=== PATIENT | female | born 1955 | race Caucasian/White ===

== ENCOUNTER 2018-03-02 19:07 | Observation (INO) | payer MEDICARE, BC ==
[2018-03-02] MEDS ORDERED: ASPIRIN 81 MG PO STA (19:27)
--- NOTE | 2018-03-02 19:30 | ED ---
Chest Pain HPI - General Chief Complaint: Chest Pain Stated Complaint: chest pain Time Seen by Provider: 03/02/18 19:19 Source: patient, RN notes reviewed, old records reviewed Mode of arrival: wheelchair Limitations: no limitations - History of Present Illness Initial Comments: This is a 62-year-old female history of heart disease and stent placement in the past with the last one about 6 months ago who states she's been having intermittent chest pain all day since this morning. She does relate she recently went camping and did do a lot of bending stretching and lifting things she states that pain is midsternal pressure-like it averages 5/10 in severity currently it's 0 she states it feels similar to what she had before her previous stents. She had no fevers chills nausea vomiting sweats or other symptoms at this time. She did not take her aspirin yet today. MD Complaint: chest pain - Related Data Home Medications Medication Instructions Recorded Confirmed Aspirin EC [Ecotrin] 81 mg PO HS 09/15/15 03/02/18 Omeprazole [PriLOSEC] 20 mg PO AC-BRKFST 09/15/15 03/02/18 Carvedilol [Coreg] 12.5 mg PO DAILY 03/02/18 03/02/18 Citalopram Hydrobromide [CeleXA] 20 mg PO HS 03/02/18 03/02/18 Clopidogrel [Plavix] 75 mg PO DAILY 03/02/18 03/02/18 Evolocumab [Repatha Sureclick] 140 mg SQ Q14D 03/02/18 03/02/18 Ezetimibe [Zetia] 10 mg PO HS 03/02/18 03/02/18 Ibuprofen [Motrin] 800 mg PO TID 03/02/18 03/02/18 Pramipexole Di-HCl [Mirapex] 0.25 mg PO HS 03/02/18 03/02/18 amLODIPine [Norvasc] 5 mg PO DAILY 03/02/18 03/02/18 Allergies Allergy/AdvReac Type Severity Reaction Status Date / Time diphenhydramine Allergy Unknown Verified 03/02/18 20:29 [From Benadryl] isosorbide [From Imdur] Allergy Unknown Verified 03/02/18 20:29 hydromorphone [From Dilaudid] AdvReac Nausea & Verified 03/02/18 20:29 Vomiting Review of Systems ROS Statement: Those systems with pertinent positive or pertinent negative responses have been documented in the HPI. ROS Other: All systems not noted in ROS Statement are negative. EKG Findings - EKG Results: EKG: interpreted by HEBER, sinus rhythm (Normal sinus rhythm a 67 appear of 01 48 QRS duration 82 QT since QTC 404/[address] configuration and T-wave configuration this is compared to an EKG dated 09/15/15) Past Medical History Past Medical History: Coronary Artery Disease (CAD), Chest Pain / Angina, Dementia, Hypertension Additional Past Medical History / Comment(s): valve prolapse, wears oxygen at night History of Any Multi-Drug Resistant Organisms: None Reported Past Surgical History: Heart Catheterization With Stent Past Psychological History: No Psychological Hx Reported Smoking Status: Never smoker Past Alcohol Use History: None Reported Past Drug Use History: None Reported General Exam - General Exam Comments Initial Comments: This is a well-developed well-nourished awake alert oriented x 3 female Limitations: no limitations General appearance: alert, in no apparent distress Head exam: Present: atraumatic, normocephalic, normal inspection Eye exam: Present: normal appearance, PERRL, EOMI. Absent: scleral icterus, conjunctival injection, periorbital swelling ENT exam: Present: normal exam, mucous membranes moist Neck exam: Present: normal inspection. Absent: tenderness, meningismus, lymphadenopathy Respiratory exam: Present: normal lung sounds bilaterally. Absent: respiratory distress, wheezes, rales, rhonchi, stridor, chest wall tenderness Cardiovascular Exam: Present: regular rate, normal rhythm, normal heart sounds. Absent: systolic murmur, diastolic murmur, rubs, gallop, clicks GI/Abdominal exam: Present: soft, normal bowel sounds. Absent: distended, tenderness, guarding, rebound, rigid Extremities exam: Present: normal inspection, full ROM, normal capillary refill. Absent: tenderness, pedal edema, joint swelling, calf tenderness Back exam: Present: normal inspection Neurological exam: Present: alert, oriented X3, CN II-XII intact Psychiatric exam: Present: normal affect, normal mood Skin exam: Present: warm, dry, intact, normal color. Absent: rash Course Vital Signs 03/02/18 03/02/18 03/02/18 19:13 19:27 20:10 Temperature 97.7 F Pulse Rate 70 63 Respiratory 18 18 18 Rate Blood Pressure 161/77 152/64 O2 Sat by Pulse 96 98 Oximetry 03/02/18 21:31 Temperature Pulse Rate 70 Respiratory 18 Rate Blood Pressure 160/73 O2 Sat by Pulse 100 Oximetry - Reevaluation(s) Reevaluation #1: 03/02/18 22:34 Reevaluation of the patient reveals no further chest pain. Chest Pain MDM - MDM Review the imaging shows no acute findings. I did discuss findings with the patient she's had no further pain however the symptoms are consistent with unstable angina. Patient will be admitted I did discuss the case with Pete Alvarado covering for Dr. Baker. Critical Care Time Critical Care Time: Yes Critical Care Time: 31 minutes of critical care time which includes initial presentation with history physical labs x-rays several reevaluation the patient discussed with patient family regarding the findings discussion with the admitting service admission orders and documentation of the above Disposition Clinical Impression: Chest pain, Unstable angina pectoris Disposition: ADMITTED IP TO THIS [facility] Condition: Stable Referrals: Ruel Engle MD [Primary Care Provider] - 1-2 days
[2018-03-02 19:40] LABS: Basophils # (A) 0.1 k/uL (0-0.2); Basophils % (A) 1 %; Eosinophils # (A) 0.2 k/uL (0-0.7); Eosinophils % (A) 4 %; HCT 41.3 % (34.0-46.0); HGB 13.7 gm/dL (11.4-16.0); Lymphocytes % (A) 31 %; MCH 29.1 pg (25.0-35.0); MCHC 33.2 g/dL (31.0-37.0); MCV 87.7 fL (80.0-100.0); Mean Platelet Volume 7.2; Monocytes # (A) 0.4 k/uL (0-1.0); Monocytes % (A) 6 %; Neutrophils # (A) 3.8 k/uL (1.3-7.7); Neutrophils % (A) 58 %; Platelet Count 243 k/uL (150-450); WBC 6.6 k/uL (3.8-10.6)
--- NOTE | 2018-03-02 19:45 | XR ---
EXAMINATION TYPE: XR chest 2V DATE OF EXAM: 03/02/2018 COMPARISON: 09/15/2015 INDICATION: Chest pain TECHNIQUE: Frontal and lateral views of the chest are obtained. FINDINGS: The heart size is normal. Stents are faintly visualized. The pulmonary vasculature is normal. The lungs are clear. IMPRESSION: 1. No acute pulmonary process.
[2018-03-02 20:04] LABS: Albumin 3.9 g/dL (3.5-5.0); Calcium 9.7 mg/dL (8.4-10.2); Magnesium 1.9 mg/dL (1.6-2.3); Potassium 3.7 mmol/L (3.5-5.1); Total Bilirubin 0.4 mg/dL (0.2-1.3); Total Protein 6.6 g/dL (6.3-8.2)
[2018-03-02 20:07] LABS: Creatine Kinase 45 U/L (30-135)
[2018-03-02 20:19] LABS: Creatine Kinase MB 0.2 ng/mL (0.0-2.4); Troponin I <0.012 ng/mL (0.000-0.034)
[2018-03-02] MEDS ORDERED: NITROGLYCERIN SL TABS 0.4 MG TAB SUBLINGUAL PRN (22:36)
[2018-03-02] MEDS ORDERED: SODIUM CHLORIDE 0.9% 1,000 ML IV SCH (22:45)
[2018-03-03 00:29] VITALS: BMI 34.9
[2018-03-03 05:45] LABS: Creatine Kinase 175 U/L (30-135); Creatine Kinase MB 1.3 ng/mL (0.0-2.4); Troponin I <0.012 ng/mL (0.000-0.034)
[2018-03-03] MEDS ORDERED: HEPARIN SODIUM,PORCINE 5,000 UNIT/ML 1 ML VIAL IV PRN (07:18)
[2018-03-03] MEDS ORDERED: HEPARIN SODIUM,PORCINE 5,000 UNIT/ML 1 ML VIAL IV ONE (07:18)
[2018-03-03] MEDS ORDERED: PANTOPRAZOLE 40 MG TABLET PO SCH (07:30)
[2018-03-03] MEDS ORDERED: HEPARIN SODIUM,PORCINE/D5W PMX 25,000 UNIT in DEXTROSE/WATER 1 500ML.BAG IV SCH (07:30)
[2018-03-03] MEDS ORDERED: SODIUM CHLORIDE 0.9% 1,000 ML in EMPTY BAG 1 BAG IV ONE (07:38)
[2018-03-03] MEDS ORDERED: ALPRAZolam 0.25 MG TAB PO PRN (07:38)
[2018-03-03] MEDS ORDERED: ATORVASTATIN 80 MG TAB PO STA (07:38)
[2018-03-03] MEDS ORDERED: NITROGLYCERIN SL TABS 0.4 MG TAB SUBLINGUAL PRN (07:38)
[2018-03-03] MEDS ORDERED: ALPRAZolam 0.5 MG TAB PO PRN (07:38)
[2018-03-03] MEDS ORDERED: ASPIRIN 325 MG TAB PO STA (07:38)
[2018-03-03 07:54] LABS: Cholesterol 97 mg/dL (<200); HDL Cholesterol 47 mg/dL (40-60); LDL Cholesterol,Calculated 32 mg/dL (0-99); Triglycerides 90 mg/dL (<150)
[2018-03-03] MEDS ORDERED: NITROGLYCERIN OINT 1 INCH/GM PACKET TOPICAL SCH (08:00)
[2018-03-03 08:04] LABS: Basophils # (A) 0.1 k/uL (0-0.2); Basophils % (A) 1 %; Eosinophils # (A) 0.2 k/uL (0-0.7); Eosinophils % (A) 4 %; HCT 41.2 % (34.0-46.0); HGB 13.7 gm/dL (11.4-16.0); Lymphocytes # (A) 1.5 k/uL (1.0-4.8); Lymphocytes % (A) 27 %; MCH 29.5 pg (25.0-35.0); MCHC 33.3 g/dL (31.0-37.0); MCV 88.6 fL (80.0-100.0); Mean Platelet Volume 7.1; Monocytes # (A) 0.3 k/uL (0-1.0); Monocytes % (A) 6 %; Neutrophils # (A) 3.4 k/uL (1.3-7.7); Neutrophils % (A) 62 %; Platelet Count 206 k/uL (150-450); RBC 4.65 m/uL (3.80-5.40); WBC 5.5 k/uL (3.8-10.6)
[2018-03-03 08:12] VITALS: RESP 18
[2018-03-03 08:23] LABS: Creatine Kinase 35 U/L (30-135)
[2018-03-03 08:35] LABS: Creatine Kinase MB <0.2 ng/mL (0.0-2.4); Troponin I <0.012 ng/mL (0.000-0.034)
--- NOTE | 2018-03-03 08:41 | CONS ---
CONSULTATION Attending: Dr. Engle. Mrs. Calabrese is a 62-year-old female who presented with symptoms of chest discomfort. She has a known history of coronary artery disease, status post multiple percutaneous revascularization, most recently done in July of last year at [facility] by Dr. Lamb. At that time, apparently she had in-stent restenoses, has felt better up to the last month when she started to complain of progressive symptoms of chest discomfort with minimal activity associated with symptoms of significant dyspnea and diaphoresis. Yesterday, she had an episode of discomfort at rest. Because of those symptoms, she came into the emergency room. At the time of my evaluation, she is pain-free. The patient was scheduled to be seen by her primary home child care provider, Dr. Lamb today for followup. She has occasional peripheral edema. No clear PND or orthopnea. No dizziness, palpitation, or syncope. She had a prior history of myocardial infarction and prior stenting done at [facility] in the past by Dr. Dang Stone, although details of that are not available to me at this point. Her coronary risk factors are remarkable for prior history of smoking. She is hypertensive and hyperlipidemic. She is nondiabetic. MEDICATIONS: Her medications include aspirin, Plavix 75 mg daily, Coreg 12.5 mg daily, amlodipine 5 mg daily, Zetia 10 mg daily, Repatha, omeprazole, citalopram, Mirapex and Motrin. The patient could not tolerate STATIN. REVIEW OF SYSTEMS: RESPIRATORY SYSTEM: She has no documented history of asthma, emphysema or bronchitis. GI SYSTEM: Recent GI bleed. No peptic ulcer disease. SYSTEM: No dysuria or hematuria. NERVOUS SYSTEM: She had a remote history of stroke. PHYSICAL EXAMINATION: A 62-year-old female, alert, oriented, in no apparent distress. Blood pressure 146/58 with a heart rate in the 60s. HEAD: Normocephalic. EYES: Sclerae anicteric. NECK: Good carotid upstroke. No bruit. No jugular venous distention. LUNGS: Clear to auscultation. HEART: Regular rate and rhythm. S1, S2. No S3. No rub or gallop. ABDOMEN: Soft, obese. Positive bowel sounds. No organomegaly. EXTREMITIES: No edema. Intact distal pulses. LAB DATA: Lab data revealed troponin less than 0.012 for 2 samples. BUN and creatinine 16 and 0.84. Potassium 3.7. Hemoglobin of 13.7. EKG revealed a sinus mechanism, normal axis and intervals with T-wave inversion in lead leads V1 through V4. Compared with an EKG obtained in 2015, she had T-wave inversion at that time. IMPRESSION: 1. Symptoms of chest discomfort, highly suggestive of angina pectoris in a patient with prior history of stenting. According to the patient, these symptoms are very similar to what she had on her presentation. 2. Status post multiple stenting with in-stent restenosis. 3. History of hypertension. 4. Hyperlipidemia. RECOMMENDATION: I would initiate treatment with heparin. I discussed with the patient the issue of a cardiac catheterization and the rationale behind it. I offered her both options to undergo the procedure here or by her primary home child care provider at [facility]. She is in favor to be transferred to [facility]. We will attempt to arrange that for her to undergo the procedure there. Thank you for this consult. We will follow with you. TAMEKA / ARINAN: [id number] /
[2018-03-03] MEDS ORDERED: ASPIRIN 325 MG TAB PO SCH (09:00)
[2018-03-03] MEDS ORDERED: CLOPIDOGREL 75 MG TAB PO SCH (09:00)
[2018-03-03] MEDS ORDERED: ASPIRIN 81 MG PO SCH (09:00)
[2018-03-03] MEDS ORDERED: amLODIPine 5 MG TAB PO SCH (09:00)
[2018-03-03] MEDS ORDERED: IBUPROFEN 800 MG TAB PO SCH (09:00)
[2018-03-03] MEDS: CARVEDILOL 6.25 MG TAB PO SCH ×2 (09:25→17:15)
[2018-03-03] MEDS ORDERED: LIDOCAINE 2% INJ 20 MG/ML (20 ML MDV) ONE (11:01)
[2018-03-03] MEDS ORDERED: fentaNYL (PF) 50 MCG/ML 2 ML AMP ONE (11:23)
[2018-03-03] MEDS ORDERED: IV FLUID CONTINUATION 1,000 ML IV ONE (11:25)
[2018-03-03] MEDS ORDERED: VERAPAMIL 2.5 MG/ML 2 ML AMP ONE (11:35)
[2018-03-03] MEDS ORDERED: fentaNYL (PF) 50 MCG/ML 2 ML AMP IV ONE (11:50)
[2018-03-03] MEDS ORDERED: LIDOCAINE 2% INJ 20 MG/ML SQ ONE (11:54)
[2018-03-03] MEDS ORDERED: VERAPAMIL SYRINGE (5 MG/10 ML) INTRAARTER ONE (11:58)
[2018-03-03] MEDS ORDERED: HEPARIN SODIUM 1,000 UN/ML (10ML VL) ONE (12:04)
[2018-03-03] MEDS ORDERED: HEPARIN SODIUM 1,000 UN/ML (10ML VL) IV ONE (12:05)
[2018-03-03] MEDS ORDERED: IOPAMIDOL-370 125ML BTL INJ ONE (12:09)
[2018-03-03] MEDS ORDERED: RX INFO: IV CONTRAST WAS GIVEN 1 EACH MISC MISCELLANE PRN (12:21)
[2018-03-03] MEDS ORDERED: SODIUM CHLORIDE 0.9% 1,000 ML IV SCH (12:30)
[2018-03-03 12:32] VITALS: TEMP 97.7
--- NOTE | 2018-03-03 14:44 | P.HPIM ---
History of Present Illness Patient was a 61-year-old female came in with compensative chest pressure-like sensation on and off last night. Patient denied diaphoresis or chest pain is nonpruritic in nature not associated with food completely resolved at this point of time patient pain was about 5/10 in severity considering her recent cardiac catheterization in month of July last year. Patient underwent cardiac catheterization which did not show any restenosis or in-stent stenosis of the previous stents and no other significantly stent table atherosclerotic coronary occlusive disease was appreciated on cardiac cath. Patient will be discharged today. Unsure the exact etiology of chest pain mainly [place] skeletal nature. Patient says she is a solids and at nighttime unsure why patient denied any history of sleep apnea or COPD history. Review of Systems REVIEW OF SYSTEMS: CONSTITUTIONAL: No fever, no malaise, no fatigue. HEENT: No recent visual problems or hearing problems. Denied any sore throat. CARDIOVASCULAR: No orthopnea, PND, no palpitations, no syncope. PULMONARY: No shortness of breath, no cough, no hemoptysis. GASTROINTESTINAL: No diarrhea, no nausea, no vomiting, no abdominal pain. Normoactive bowel sounds. NEUROLOGICAL: No headaches, no weakness, no numbness. HEMATOLOGICAL: Denies any bleeding or petechiae. GENITOURINARY: Denies any burning micturition, frequency, or urgency. MUSCULOSKELETAL/RHEUMATOLOGICAL: Denies any joint pain, swelling, or any muscle pain. ENDOCRINE: Denies any polyuria or polydipsia. The rest of the 14-point review of systems is negative. Past Medical History Past Medical History: Coronary Artery Disease (CAD), Chest Pain / Angina, Dementia, GERD/Reflux, Hyperlipidemia, Hypertension, Osteoarthritis (OA) Additional Past Medical History / Comment(s): valve prolapse, wears oxygen at night, early dementia History of Any Multi-Drug Resistant Organisms: None Reported Past Surgical History: Cholecystectomy, Heart Catheterization, Heart Catheterization With Stent Past Anesthesia/Blood Transfusion Reactions: No Reported Reaction Date of Last Stent Placement:: 05/2017 Past Psychological History: No Psychological Hx Reported Smoking Status: Former smoker Past Alcohol Use History: None Reported Additional Past Alcohol Use History / Comment(s): pt. states she smoked two packs a day for many years but quit 10-15 years ago Past Drug Use History: None Reported - Past Family History Father Family Medical History: Myocardial Infarction ([place]) Additional Family Medical History / Comment(s): pt. states her father from an [place] Mother Family Medical History: Blood Disorder Additional Family Medical History / Comment(s): LE[place]EMIA Brother(s) Family Medical History: Chest Pain / Angina, Coronary Artery Disease (CAD), Liver Disease, Rheumatoid Arthritis (RA) Additional Family Medical History / Comment(s): pt. has three brothers. pt. states one has liver disease (hepatitis), another has a defibrillator and another has RA Medications and Allergies Home Medications Medication Instructions Recorded Confirmed Type Aspirin EC [Ecotrin] 81 mg PO HS 09/15/15 03/02/18 History Omeprazole [PriLOSEC] 20 mg PO AC-BRKFST 09/15/15 03/02/18 History Carvedilol [Coreg] 12.5 mg PO DAILY 03/02/18 03/02/18 History Citalopram Hydrobromide [CeleXA] 20 mg PO HS 03/02/18 03/02/18 History Clopidogrel [Plavix] 75 mg PO DAILY 03/02/18 03/02/18 History Evolocumab [Repatha Sureclick] 140 mg SQ Q14D 03/02/18 03/02/18 History Ezetimibe [Zetia] 10 mg PO HS 03/02/18 03/02/18 History Ibuprofen [Motrin] 800 mg PO TID 03/02/18 03/02/18 History Pramipexole Di-HCl [Mirapex] 0.25 mg PO HS 03/02/18 03/02/18 History amLODIPine [Norvasc] 5 mg PO DAILY 03/02/18 03/02/18 History Allergies Allergy/AdvReac Type Severity Reaction Status Date / Time diphenhydramine Allergy Unknown Verified 03/02/18 23:52 [From Benadryl] isosorbide [From Imdur] AdvReac Intermediate Unknown Verified 03/02/18 23:51 hydromorphone [From Dilaudid] AdvReac Nausea & Verified 03/02/18 23:51 Vomiting Physical Exam Vitals: Vital Signs Temp Pulse Pulse Resp BP BP BP 03/03/18 13:40 57 L 113/61 03/03/18 13:10 64 133/56 03/03/18 12:55 63 143/79 03/03/18 12:40 51 L 143/64 03/03/18 12:30 18 03/03/18 12:25 97.7 F 54 L 18 176/80 03/03/18 08:00 18 03/03/18 07:25 98.1 F 63 18 149/74 03/02/18 23:36 97.6 F 62 16 168/81 03/02/18 23:30 62 16 03/02/18 23:00 97.5 F L 63 18 146/58 03/02/18 21:31 70 18 160/73 03/02/18 20:10 63 18 152/64 03/02/18 19:27 18 03/02/18 19:13 97.7 F 70 18 161/77 Pulse Ox 03/03/18 13:40 93 L 03/03/18 13:10 93 L 03/03/18 12:55 93 L 03/03/18 12:40 94 L 03/03/18 12:30 03/03/18 12:25 94 L 03/03/18 08:00 03/03/18 07:25 94 L 03/02/18 23:36 94 L 03/02/18 23:30 03/02/18 23:00 98 03/02/18 21:31 100 03/02/18 20:10 98 03/02/18 19:27 03/02/18 19:13 96 Intake and Output 03/02/18 03/03/18 03/03/18 22:59 06:59 14:59 Intake Total 655 Balance 655 Intake: IV 75 Oral 480 Other 100 Other: Voiding Method Toilet Toilet Weight 95.254 kg 95.254 kg PHYSICAL EXAMINATION: GENERAL: The patient is alert and oriented x3, not in any acute distress. Well developed, well nourished. HEENT: Pupils are round and equally reacting to light. EOMI. No scleral icterus. No conjunctival pallor. Normocephalic, atraumatic. No pharyngeal erythema. No thyromegaly. CARDIOVASCULAR: S1 and S2 present. No murmurs, rubs, or gallops. PULMONARY: Chest is clear to auscultation, no wheezing or crackles. ABDOMEN: Soft, nontender, nondistended, normoactive bowel sounds. No palpable organomegaly. MUSCULOSKELETAL: No joint swelling or deformity. EXTREMITIES: No cyanosis, clubbing, or pedal edema. NEUROLOGICAL: Gross neurological examination did not reveal any focal deficits. SKIN: No rashes. Results CBC & Chem 7: 03/03/18 06:34 03/02/18 19:23 Labs: Abnormal Lab Results - Last 24 Hours (Table) 03/02/18 03/03/18 Range/Units 19:23 00:50 Sodium 148 H (137-145) mmol/L Total Creatine Kinase 175 H (30-135) U/L Thrombosis Risk Factor Assmnt - Choose All That Apply Any of the Below Risk Factors Present?: Yes Each Factor Represents 1 point: Obesity (BMI >25), Swollen legs (current) Other Risk Factors: Yes Each Risk Factor Represents 2 Points: Age 61-74 years Other congenital or acquired thrombophilia - If yes, enter type in comment: No Thrombosis Risk Factor Assessment Total Risk Factor Score: 4 Thrombosis Risk Factor Assessment Level: Moderate Risk Assessment and Plan Plan: -Chest pain: Rule out acute medicine syndromes patient underwent cardiac catheterization. -Dementia: Etiology is unknown may be mild -Hypertension next and-hyperlipidemia -Coronary artery disease For above-mentioned chronic medical problems patient will resume on her home medications cardiac diet patient will follow with PCP as an outpatient
--- NOTE | 2018-03-03 14:45 | P.DS ---
Providers Date of admission: 03/02/18 22:36 Attending physician: Honey Baker Consults: 03/02/18 22:36 Consult Physician Urgent Consulting Provider: Mega Shukla Consult Reason/Comments: Chest pain Do you want consulting provider notified?: Yes Primary care physician: Oniel Lipscomb [facility] Course: Please refer to HPI Patient Condition at Discharge: Stable Plan - Discharge Summary Discharge Rx Participant: No New Discharge Prescriptions: No Action Omeprazole [PriLOSEC] 20 mg PO AC-BRKFST Aspirin EC [Ecotrin] 81 mg PO HS amLODIPine [Norvasc] 5 mg PO DAILY Ezetimibe [Zetia] 10 mg PO HS Clopidogrel [Plavix] 75 mg PO DAILY Citalopram Hydrobromide [CeleXA] 20 mg PO HS Pramipexole Di-HCl [Mirapex] 0.25 mg PO HS Ibuprofen [Motrin] 800 mg PO TID Evolocumab [Repatha Sureclick] 140 mg SQ Q14D Carvedilol [Coreg] 12.5 mg PO DAILY Discharge Medication List Aspirin EC [Ecotrin] 81 mg PO HS 09/15/15 [History] Omeprazole [PriLOSEC] 20 mg PO AC-BRKFST 09/15/15 [History] Carvedilol [Coreg] 12.5 mg PO DAILY 03/02/18 [History] Citalopram Hydrobromide [CeleXA] 20 mg PO HS 03/02/18 [History] Clopidogrel [Plavix] 75 mg PO DAILY 03/02/18 [History] Evolocumab [Repatha Sureclick] 140 mg SQ Q14D 03/02/18 [History] Ezetimibe [Zetia] 10 mg PO HS 03/02/18 [History] Ibuprofen [Motrin] 800 mg PO TID 03/02/18 [History] Pramipexole Di-HCl [Mirapex] 0.25 mg PO HS 03/02/18 [History] amLODIPine [Norvasc] 5 mg PO DAILY 03/02/18 [History] Follow up Appointment(s)/Referral(s): Ruel Engle MD [Primary Care Provider] - 3 Days Discharge Disposition: HOME SELF-CARE
--- NOTE | 2018-03-03 15:02 | CC ---
CARDIAC CATHETERIZATION REPORT DATE OF SERVICE: 03/03/18 CLINICAL HISTORY: Mrs. Calabrese is a 62-year-old female known history of coronary artery disease, status post percutaneous revascularization done by Dr. Dang Stone in 2018, subsequently underwent stenting of in-stent restenoses of the LAD done at [facility] by Dr. Lamb in July of 2017. She presented to the hospital with symptoms of chest discomfort on and off for the last few weeks, reminding her of the symptoms she had prior to the stenting in 2016. Because of that, recommendation made regarding cardiac catheterization. The procedure as well as risks and complications were discussed with the patient who is in full understanding and agreement. PROCEDURE: Patient was brought to company laborer in a fasting semisedated state. After receiving fentanyl and Benadryl and achieving moderate conscious sedated state. Using Xylocaine anesthesia in the Seldinger technique, a 6-Guamanian sheath was introduced in the right radial artery. Selective right and left angiography performed using 5-Guamanian 3 and half bend, right and left Judkin's catheter. Multiple views of the coronary arteries including hemiaxial views were obtained. Following that, 5-Guamanian tight pigtail catheter was introduced into the left ventricle and a 30 degree ZAVALA view of the left ventricle was obtained. Following that, the catheter and sheaths were removed. Hemostasis was obtained with deployment of a TR band. There was no immediate complication. The patient is returned to her room in stable condition. Of note, the patient received 5000 units of intravenous heparin as well as intra-arterial verapamil. FINDINGS: 1. Left main: This is a short size vessel bifurcating into left circumflex, left anterior descending artery, left main coronary artery has no evidence of high-grade stenosis. 2. Left anterior descending artery: This is a large-sized vessel reaching to the apex and tapers down in the distal 3rd. The proximal mid and mid LAD is stented. The stents are patent. There is mild intimal restenosis of about 20%. There was about 20% plaque in the proximal LAD prior to the stented segment. The rest of the vessel has no high-grade stenosis. 3. Left circumflex: This is a nondominant vessel, large in caliber giving rise to 3 obtuse marginal branches. The second and 3rd obtuse marginal branches are the largest. The left circumflex has mild intimal disease without any evidence of high- grade stenosis. 4. Right coronary artery: This is a large dominant vessel bifurcating into PDA and posterolateral segment and branches. The right coronary artery and its branches have mild intimal disease without any evidence of high-grade stenosis. 5. Left ventriculogram: Left ventriculogram was performed in 30 degree ZAVALA view and revealed mild mid anterior wall hypokinesis with ejection fraction of 50%. There was no significant mitral regurgitation. Calcification of the abdominal aorta was noted. HEMODYNAMICS: There was no gradient across the aortic valve. The left ventricle end-diastolic pressure was 12-16 mmHg. CONCLUSION: 1. Mild triple-vessel coronary artery disease. 2. No evidence of restenosis in the prior stented segment. 3. Mildly impaired left ventricular systolic function. RECOMMENDATION: In view of finding and anatomy, I have recommended continued medical therapy with aggressive coronary risk factor modifications that have been initiated. Those findings and recommendation were discussed with the patient and her family who are in full understanding and agreement. Duration of procedure: 21 minutes. MMMARYL / ARINAN: [id number] /
--- NOTE | 2018-03-03 15:08 | LTR ---
DATE OF SERVICE: 03/03/[address] Engle: I had the pleasure of performing cardiac catheterization on Mrs. Calabrese at [facility] on the February and a full copy of procedure note will be forwarded to you. In brief, she was found to have no evidence of significant disease with no significant restenosis in the stented segment performed at [facility] in July of last year. Based on those findings, I have recommend continued medical therapy with aggressive coronary risk factor modifications that you have initiated. Thank you again for allowing me to participate in her care. Please feel free to call me for any questions. Sincerely yours, MMODL / IJN: [id number] /
[2018-03-03 15:16] VITALS: BP 121/63; PULSE 60
[2018-03-03] MEDS ORDERED: EZETIMIBE 10 MG TAB PO SCH (21:00)
[2018-03-03] MEDS ORDERED: CITALOPRAM HYDROBROMIDE 20 MG TAB PO SCH (21:00)
[2018-03-03] MEDS ORDERED: NON-FORMULARY DRUG (Aspirin Ec 81 MG) PO SCH (21:00)
[2018-03-03] MEDS ORDERED: PRAMIPEXOLE 0.25 MG TAB PO SCH (21:00)
== END 2018-03-03 17:50 | disposition home or self-care (01) ==
LOC: EC 19:07 → 3OBS 22:36
PROVIDERS: ADMIT Internal Medicine; ATTEND Internal Medicine
DX: R07.89 Other chest pain (principal); I10 Essential (primary) hypertension; E78.5 Hyperlipidemia, unspecified; I25.110 Atherosclerotic heart disease of native coronary artery with unstable angina pectoris; F03.90 Unspecified dementia, unspecified severity, without behavioral disturbance, psychotic disturbance, mood disturbance, and anxiety; E66.9 Obesity, unspecified; Z68.34 Body mass index [BMI] 34.0-34.9, adult; R60.0 Localized edema; Z79.82 Long term (current) use of aspirin; Z79.02 Long term (current) use of antithrombotics/antiplatelets; Z79.1 Long term (current) use of non-steroidal anti-inflammatories (NSAID); Z79.899 Other long term (current) drug therapy; Z88.5 Allergy status to narcotic agent; Z88.8 Allergy status to other drugs, medicaments and biological substances; Z87.891 Personal history of nicotine dependence; Z99.81 Dependence on supplemental oxygen; Z95.5 Presence of coronary angioplasty implant and graft; Z82.49 Family history of ischemic heart disease and other diseases of the circulatory system; Z80.6 Family history of leukemia; Z82.61 Family history of arthritis; Z83.79 Family history of other diseases of the digestive system
CPT/HCPCS: 99152; 99291 ×2; 96365; 96366; 96368; 96376; 36415; 94760; 93005; 93458; 80061; 80053; 82550 ×2; 82553 ×2; 83735; 84484 ×2; 85025 ×2; 85610; 85730; 71046; G0378 ×2; C1894; C1769; J2001; J1644 ×3; J3010; Q9967

== ENCOUNTER → 2018-10-05 | Outpatient (CLI) | payer MEDICARE, BC ==
[2018-10-06 03:01] LABS: T4, Free (Free Thyroxine) 1.1 ng/dL (0.80-1.80)
== END | disposition home or self-care (01) ==
LOC: LABWHC1 14:49
PROVIDERS: ATTEND Internal Medicine Critical Care Medicine
DX: R06.09 Other forms of dyspnea (principal)
CPT/HCPCS: 36415; 84439; 84443

== ENCOUNTER 2019-05-26 16:34 | Inpatient (IN) | payer MEDICARE, BC ==
[2019-05-26] MEDS ORDERED: MORPHINE SULFATE 4 MG/ML SYRINGE IV STA ×2 (17:10→19:19)
--- NOTE | 2019-05-26 17:11 | ED ---
Chest Pain HPI - General Chief Complaint: Chest Pain Stated Complaint: Chest Pain Time Seen by Provider: 05/26/19 16:52 Source: patient Mode of arrival: wheelchair Limitations: no limitations - History of Present Illness Initial Comments: Patient complains of chest pain. Pain is in the middle of the chest. It radiates to her jaw. Nothing specifically makes it better or worse. She has nausea, diaphoresis. She has no weakness. She has no palpitations. She has no lightheadedness or dizziness. She has no focal weakness. - Related Data Home Medications Medication Instructions Recorded Confirmed Aspirin EC [Ecotrin] 81 mg PO HS 09/15/15 05/26/19 Carvedilol [Coreg] 12.5 mg PO BID 03/02/18 05/26/19 Evolocumab [Repatha Sureclick] 140 mg SQ Q14D 03/02/18 05/26/19 Ezetimibe [Zetia] 10 mg PO HS 03/02/18 05/26/19 Celecoxib [CeleBREX] 200 mg PO DAILY 05/26/19 05/26/19 Nitroglycerin Sl Tabs [Nitrostat] 0.4 mg SUBLINGUAL Q5M PRN 05/26/19 05/26/19 Pramipexole [Mirapex] 0.125 mg PO HS 05/26/19 05/26/19 Spironolactone [Aldactone] 25 mg PO DAILY 05/26/19 05/26/19 Allergies Allergy/AdvReac Type Severity Reaction Status Date / Time diphenhydramine Allergy SEE COMMENT Verified 05/26/19 17:24 [From Benadryl] isosorbide [From Imdur] AdvReac Intermediate severe Verified 05/26/19 17:24 headache hydromorphone [From Dilaudid] AdvReac Nausea & Verified 05/26/19 17:24 Vomiting Review of Systems ROS Statement: Those systems with pertinent positive or pertinent negative responses have been documented in the HPI. ROS Other: All systems not noted in ROS Statement are negative. EKG Findings - EKG Comments: EKG Findings:: Twelve-lead EKG shows ventricular rate 61 bpm, normal GA interval and QRS complexes, no ST elevations, interpreted by me as a normal sinus rhythm Past Medical History Past Medical History: Coronary Artery Disease (CAD), Chest Pain / Angina, Dementia, GERD/Reflux, Hyperlipidemia, Hypertension, Osteoarthritis (OA) Additional Past Medical History / Comment(s): valve prolapse, wears oxygen at night, early dementia History of Any Multi-Drug Resistant Organisms: None Reported Past Surgical History: Cholecystectomy, Heart Catheterization, Heart Catheterization With Stent Past Anesthesia/Blood Transfusion Reactions: No Reported Reaction Date of Last Stent Placement:: 05/2017 Past Psychological History: No Psychological Hx Reported Smoking Status: Former smoker Past Alcohol Use History: None Reported Past Drug Use History: None Reported - Past Family History Father Family Medical History: Myocardial Infarction ([place]) Additional Family Medical History / Comment(s): pt. states her father from an [place] Mother Family Medical History: Blood Disorder Additional Family Medical History / Comment(s): LEUKEMIA Brother(s) Family Medical History: Chest Pain / Angina, Coronary Artery Disease (CAD), Liver Disease, Rheumatoid Arthritis (RA) Additional Family Medical History / Comment(s): pt. has three brothers. pt. states one has liver disease (hepatitis), another has a defibrillator and another has RA General Exam Limitations: no limitations General appearance: alert, in no apparent distress Head exam: Present: atraumatic, normocephalic, normal inspection Eye exam: Present: normal appearance, PERRL, EOMI. Absent: scleral icterus, conjunctival injection, periorbital swelling ENT exam: Present: normal exam, mucous membranes moist Neck exam: Present: normal inspection. Absent: tenderness, meningismus, lymphadenopathy Respiratory exam: Present: normal lung sounds bilaterally. Absent: respiratory distress, wheezes, rales, rhonchi, stridor Cardiovascular Exam: Present: regular rate, normal rhythm, normal heart sounds. Absent: systolic murmur, diastolic murmur, rubs, gallop, clicks GI/Abdominal exam: Present: soft, normal bowel sounds. Absent: distended, tenderness, guarding, rebound, rigid Extremities exam: Present: normal inspection, full ROM, normal capillary refill. Absent: tenderness, pedal edema, joint swelling, calf tenderness Back exam: Present: normal inspection Neurological exam: Present: alert, oriented X3, CN II-XII intact Psychiatric exam: Present: normal affect, normal mood Skin exam: Present: warm, dry, intact, normal color. Absent: rash Course Vital Signs 05/26/19 05/26/19 16:43 18:09 Temperature 97.8 F 98.4 F Pulse Rate 62 65 Respiratory 18 17 Rate Blood Pressure 162/80 152/78 O2 Sat by Pulse 96 98 Oximetry Chest Pain MDM - MDM Patient presents with chest pain. I'm very concerned for acute coronary syndrome. She will be admitted to the hospital. I will consult cardiology. Disposition Clinical Impression: Chest pain Disposition: ADMITTED IP TO THIS HOSP Condition: Fair Referrals: Nonstaff,Physician [Primary Care Provider] - 1-2 days
[2019-05-26 17:19] LABS: Basophils # (A) 0.1 k/uL (0-0.2); Basophils % (A) 1 %; Eosinophils # (A) 0.2 k/uL (0-0.7); Eosinophils % (A) 3 %; HCT 44.9 % (34.0-46.0); HGB 14.5 gm/dL (11.4-16.0); Lymphocytes # (A) 1.6 k/uL (1.0-4.8); Lymphocytes % (A) 18 %; MCHC 32.3 g/dL (31.0-37.0); MCV 86.6 fL (80.0-100.0); Mean Platelet Volume 7.6; Monocytes # (A) 0.4 k/uL (0-1.0); Monocytes % (A) 5 %; Neutrophils # (A) 6.6 k/uL (1.3-7.7); Neutrophils % (A) 73 %; Platelet Count 262 k/uL (150-450); RBC 5.19 m/uL (3.80-5.40); RDW 14.3 % (11.5-15.5); WBC 9.1 k/uL (3.8-10.6)
[2019-05-26 17:27] LABS: INR 0.9 (<1.2); Partial Thromboplastin Time 23.4 sec (22.0-30.0); Prothrombin Time 10.1 sec (9.0-12.0)
[2019-05-26 17:29] LABS: Albumin 4.4 g/dL (3.5-5.0); Calcium 10.2 mg/dL (8.4-10.2); Potassium 4.3 mmol/L (3.5-5.1); Total Bilirubin 0.8 mg/dL (0.2-1.3); Total Protein 7.6 g/dL (6.3-8.2)
--- NOTE | 2019-05-26 17:49 | XR ---
EXAMINATION TYPE: XR chest 2V DATE OF EXAM: 05/26/2019 COMPARISON: 03/02/2018 HISTORY: Chest pain TECHNIQUE: Frontal and lateral views of the chest are obtained. FINDINGS: Heart size is normal. There is slight coarsening of interstitial markings. There are chest leads. There is no pleural effusion. Bones are osteopenic. IMPRESSION: Minimal pulmonary fibrotic changes. No acute lung disease. No change.
[2019-05-26] MEDS ORDERED: ONDANSETRON 4 MG/2 ML VIAL IVP PRN (18:49)
[2019-05-26] MEDS ORDERED: NALOXONE 0.4 MG/ML 1 ML VIAL IV PRN (18:49)
[2019-05-26] MEDS ORDERED: ALPRAZolam 0.25 MG TAB PO PRN (18:49)
[2019-05-26] MEDS ORDERED: MORPHINE SULFATE 4 MG/ML SYRINGE IV PRN (18:49)
[2019-05-26] MEDS ORDERED: NITROGLYCERIN SL TABS 0.4 MG TAB SUBLINGUAL PRN (18:51)
[2019-05-26] MEDS ORDERED: ASPIRIN 81 MG PO SCH (21:00)
[2019-05-26] MEDS: EZETIMIBE 10 MG TAB PO SCH (21:44)
[2019-05-26] MEDS: PRAMIPEXOLE 0.125 MG TAB PO SCH (21:44)
[2019-05-26] MEDS: CARVEDILOL 12.5 MG TAB PO SCH (21:44)
[2019-05-27] MEDS ORDERED: HEPARIN SODIUM,PORCINE 5,000 UNIT/ML 1 ML VIAL IV PRN (00:33)
[2019-05-27] MEDS ORDERED: HEPARIN SODIUM,PORCINE 5,000 UNIT/ML 1 ML VIAL IV ONE (00:33)
[2019-05-27] MEDS ORDERED: HEPARIN SOD,PORK IN 0.45% NACL 25,000 UNIT in 0.45% NACL 1 250ML.BAG IV SCH (00:45)
[2019-05-27 02:07] LABS: Basophils # (A) 0.1 k/uL (0-0.2); Basophils % (A) 1 %; Eosinophils # (A) 0.2 k/uL (0-0.7); Eosinophils % (A) 2 %; HCT 41.9 % (34.0-46.0); HGB 13.4 gm/dL (11.4-16.0); Lymphocytes # (A) 2.5 k/uL (1.0-4.8); Lymphocytes % (A) 28 %; MCH 27.8 pg (25.0-35.0); Mean Platelet Volume 7.3; Monocytes # (A) 0.4 k/uL (0-1.0); Monocytes % (A) 4 %; Neutrophils # (A) 5.6 k/uL (1.3-7.7); Neutrophils % (A) 64 %; Platelet Count 211 k/uL (150-450); RBC 4.82 m/uL (3.80-5.40); RDW 14.4 % (11.5-15.5); WBC 8.7 k/uL (3.8-10.6)
[2019-05-27 02:32] LABS: Prothrombin Time 10.7 sec (9.0-12.0)
[2019-05-27 02:48] LABS: Partial Thromboplastin Time 144.3 sec (22.0-30.0)
[2019-05-27] MEDS: CARVEDILOL 12.5 MG TAB PO SCH ×2 (08:00→16:59)
[2019-05-27] MEDS: SPIRONOLACTONE 25 MG TAB PO SCH (08:00)
[2019-05-27] MEDS ORDERED: SODIUM CHLORIDE 0.9% 1,000 ML in EMPTY BAG 1 BAG IV ONE (09:55)
[2019-05-27] MEDS ORDERED: ATORVASTATIN 80 MG TAB PO STA (09:55)
[2019-05-27] MEDS ORDERED: ASPIRIN 325 MG TAB PO STA (10:01)
[2019-05-27 10:10] LABS: Cholesterol 94 mg/dL (<200); HDL Cholesterol 34 mg/dL (40-60); LDL Cholesterol,Calculated 37 mg/dL (0-99); Triglycerides 117 mg/dL (<150)
--- NOTE | 2019-05-27 11:10 | P.CRDCN ---
History of Present Illness History of present illness: This is a pleasant 63-year-old female past medical significant for coronary artery disease s/p stent placement with in-stent restenosis, hypertension, dyslipidemia, GERD and former nicotine dependence. She does not follow with a bag liner for any reason. We have been asked to see her in consultation for chest pain. She states she lives in [place] and traveled [place] for a wedding. While she was unloading her truck of her belongings she started getting chest pain described as heavy in the mid-sternal region. Her daughter was there and noticed she started getting diaphoretic. She took 2 nitro and ate a sandwich and started feeling better. Then about 30 minutes later it happened ago prompting her to come to the hospital for evaluation. Chest discomfort his symptoms subsided. She currently is seen and examined resting in bed in no acute distress. She denies active chest discomfort at this time. EKG reveals sinus mechanism heart rate of 61, T-wave inversions noted in the anterior leads, ST depression laterally. Chest x-ray is negative for an acute cardiopulmonary process. Laboratory data reviewed, troponin negative, 0.109 and 0.264, LDL 37, creatinine 1.02 with a GFR 59, potassium 4.3, sodium 142 and magnesium 2.0. CBC is unremarkable. Current cardiac medications include aspirin 81 mg daily, carvedilol 12.5 mg twice a day, Zetia 10 mg daily and Aldactone 25 mg daily. Most recent cardiac catheterization February 2018 in the setting of unstable angina revealed left main with no significant stenosis, LAD with patent stents in the proximal mid and mid portions, mild intimal restenosis of 20%, 20% plaque noted in the proximal LAD prior to the stented segment, circumflex artery with mild intimal disease, RCA with no evidence of high-grade stenosis. LV gram at that time revealed mid anterior wall hypokinesia with ejection fraction 50%. At the time of my exam: CONSTITUTIONAL: Denies fever. Denies chills. EYES: Denies blurred vision. Denies vision changes. Denies eye pain. EARS, NOSE, MOUTH & THROAT: Denies headache. Denies sore throat. Denies ear pain. CARDIOVASCULAR: Denies chest pain. Denies shortness of breath. Denies orthopnea. Denies PND. Denies palpitations. RESPIRATORY: Denies cough. GASTROINTESTINAL: Denies abdominal pain. Denies diarrhea. Denies constipation. Denies nausea. Denies vomiting. MUSCULOSKELETAL: Denies myalgias. INTEGUMENTARY: Denies pruitis. Denies rash. NEUROLOGIC: Denies numbness. Denies tingling. Denies weakness. PSYCHIATRIC: Denies anxiety. Denies depression. ENDOCRINE: Denies fatigue. Denies weight change. Denies polydipsia. Denies polyurina. GENITOURINARY: Denies burning, hematuria or urgency with micturation. HEMATOLOGIC: Denies history of anemia. Denies bleeding. GENERAL: This is a 63-year-old female in no apparent distress at the time of my examination. HEENT: Head is atraumatic, normocephalic. Pupils are equal, round. Sclerae anicteric. Conjunctivae are clear. Mucous membranes of the mouth are moist. Neck is supple. There is no jugular venous distention. No carotid bruit is heard. LUNGS: Clear to auscultation no wheezes, rales or rhonchi. No chest wall tenderness is noted on palpation or with deep breathing. HEART: Regular rate and rhythm with faint systolic ejection murmur at the left sternal border, no rubs or gallops. S1 and S2 heard. ABDOMEN: Soft, nontender. Bowel sounds are heard. No organomegaly noted. EXTREMITIES: No evidence of peripheral edema and no calf tenderness noted. VASCULAR: Radial and dorsalis pedis pulses palpated, no evidence of clubbing. NEUROLOGIC: Patient is awake, alert and oriented x3. ASSESSMENT Non-ST elevated myocardial infarction History of coronary artery disease status post stent placement to the LAD Hypertension Dyslipidemia Gastroesophageal reflux disease Former nicotine dependence PLAN Proceed with cardiac catheterization to assess for progression of coronary artery disease. I have discussed the risks, benefits and alternative therapies for the above- mentioned procedure and for both sedation/analgesia as well as necessary blood product administration, if indicated, as they pertain to this patient. The patient has indicated understanding and acceptance of the risks and procedures discussed. Questions have been answered appropriately and she is agreeable to move forward with the above-stated procedure. Obtain 2-D echocardiogram and Doppler study to assess cardiac structure and function. Further recommendations to follow based upon clinical course. Thank you kindly for this consultation. Nurse Practitioner note has been reviewed, I agree with a documented findings and plan of care. Patient was seen and examined. Past Medical History Past Medical History: Coronary Artery Disease (CAD), Chest Pain / Angina, Dementia, GERD/Reflux, Hyperlipidemia, Hypertension, Osteoarthritis (OA) Additional Past Medical History / Comment(s): valve prolapse, wears oxygen at night, early dementia History of Any Multi-Drug Resistant Organisms: None Reported Past Surgical History: Cholecystectomy, Heart Catheterization, Heart Catheterization With Stent Past Anesthesia/Blood Transfusion Reactions: No Reported Reaction Date of Last Stent Placement:: 2017 Past Psychological History: No Psychological Hx Reported Smoking Status: Former smoker Past Alcohol Use History: None Reported Additional Past Alcohol Use History / Comment(s): pt. states she smoked two packs a day for many years but quit 10-15 years ago Past Drug Use History: None Reported - Past Family History Father Family Medical History: Myocardial Infarction ([place]) Additional Family Medical History / Comment(s): pt. states her father from an [place] Mother Family Medical History: Blood Disorder Additional Family Medical History / Comment(s): LEUKEMIA Brother(s) Family Medical History: Chest Pain / Angina, Coronary Artery Disease (CAD), Liver Disease, Rheumatoid Arthritis (RA) Additional Family Medical History / Comment(s): pt. has three brothers. pt. states one has liver disease (hepatitis), another has a defibrillator and another has RA Medications and Allergies Home Medications Medication Instructions Recorded Confirmed Type Aspirin EC [Ecotrin] 81 mg PO HS 09/15/15 05/26/19 History Carvedilol [Coreg] 12.5 mg PO BID 03/02/18 05/26/19 History Evolocumab [Repatha Sureclick] 140 mg SQ Q14D 03/02/18 05/26/19 History Ezetimibe [Zetia] 10 mg PO HS 03/02/18 05/26/19 History Celecoxib [CeleBREX] 200 mg PO DAILY 05/26/19 05/26/19 History Nitroglycerin Sl Tabs [Nitrostat] 0.4 mg SUBLINGUAL Q5M PRN 05/26/19 05/26/19 History Pramipexole [Mirapex] 0.125 mg PO HS 05/26/19 05/26/19 History Spironolactone [Aldactone] 25 mg PO DAILY 05/26/19 05/26/19 History Allergies Allergy/AdvReac Type Severity Reaction Status Date / Time diphenhydramine Allergy SEE COMMENT Verified 05/26/19 17:24 [From Benadryl] isosorbide [From Imdur] AdvReac Intermediate severe Verified 05/26/19 17:24 headache hydromorphone [From Dilaudid] AdvReac Nausea & Verified 05/26/19 17:24 Vomiting Physical Exam Vitals: Vital Signs Temp Pulse Pulse Resp BP BP Pulse Ox 05/27/19 04:00 60 18 05/27/19 03:34 98.2 F 60 18 137/75 95 05/27/19 00:00 97.6 F 54 L 18 113/70 95 05/26/19 20:00 98.6 F 64 18 134/61 95 05/26/19 18:09 98.4 F 65 17 152/78 98 05/26/19 16:43 97.8 F 62 18 162/80 96 Intake and Output 05/26/19 05/27/19 05/27/19 22:59 06:59 14:59 Intake Total 20 10 Balance 20 10 Intake: Amount of Fluid Infused ( 20 ml) Intake, IV Titration 10 Amount Heparin Sod,Pork in 0.45% 10 NaCl 25,000 unit In 0.45 % NaCl 1 250ml.bag @ 10. 97 UNITS/KG/HR 10.002 mls /hr IV .Q24H [facility] Rx#: [id number] Other: # Voids 2 Weight 91.172 kg Results 05/27/19 01:51 05/26/19 17:05 Cardiac Enzymes 05/26/19 05/26/19 05/26/19 Range/Units 17:05 17:05 23:00 AST 17 (14-36) U/L Troponin I <0.012 0.109 H* (0.000-0.034) ng/mL 05/27/19 Range/Units 05:35 AST (14-36) U/L Troponin I 0.264 H* (0.000-0.034) ng/mL Coagulation 05/26/19 05/27/19 Range/Units 17:05 01:51 PT 10.1 10.7 (9.0-12.0) sec APTT 23.4 144.3 H* (22.0-30.0) sec CBC 05/26/19 05/27/19 Range/Units 17:05 01:51 WBC 9.1 8.7 (3.8-10.6) k/uL RBC 5.19 4.82 (3.80-5.40) m/uL Hgb 14.5 13.4 (11.4-16.0) gm/dL Hct 44.9 41.9 (34.0-46.0) % Plt Count 262 211 (150-450) k/uL Comprehensive Metabolic Panel 05/26/19 Range/Units 17:05 Sodium 142 (137-145) mmol/L Potassium 4.3 (3.5-5.1) mmol/L Chloride 106 (98-107) mmol/L Carbon Dioxide 27 (22-30) mmol/L BUN 15 (7-17) mg/dL Creatinine 1.02 (0.52-1.04) mg/dL Glucose 115 H (74-99) mg/dL Calcium 10.2 (8.4-10.2) mg/dL AST 17 (14-36) U/L ALT 20 (9-52) U/L Alkaline Phosphatase 75 (38-126) U/L Total Protein 7.6 (6.3-8.2) g/dL Albumin 4.4 (3.5-5.0) g/dL Current Medications Generic Name Dose Route Start Last Admin Trade Name Freq PRN Reason Stop Dose Admin Alprazolam 0.25 mg 05/26/19 18:49 Xanax PO Q6HR PRN Anxiety Aspirin 81 mg 05/26/19 21:00 05/26/19 21:44 Aspirin PO 81 mg HS ANDREAS Administration Carvedilol 12.5 mg 05/26/19 21:00 05/26/19 21:44 Coreg PO 12.5 mg BID-W/MEALS ANDREAS Administration Ezetimibe 10 mg 05/26/19 21:00 05/26/19 21:44 Zetia PO 10 mg HS ANDREAS Administration Heparin Sodium (Porcine) 0 unit 05/27/19 00:33 Heparin IV PER PROTOCOL PRN Low PTT Protocol Heparin Sodium/Sodium Chloride 250 mls @ 10.002 mls/hr 05/27/19 00:45 05/27/19 03:00 25,000 unit/ Sodium Chloride IV 10.97 units/kg/hr .Q24H ANDREAS 10.002 mls/hr Administration Protocol 10.97 UNITS/KG/HR Morphine Sulfate 4 mg 05/26/19 18:49 Morphine Sulfate (Inj) IV Q4HR PRN Severe Pain Naloxone HCl 0.2 mg 05/26/19 18:49 Narcan IV Q2M PRN Opioid Reversal Nitroglycerin 0.4 mg 05/26/19 18:51 Nitrostat SUBLINGUAL Q5M PRN Chest Pain Ondansetron HCl 4 mg 05/26/19 18:49 Zofran IVP Q8HR PRN Nausea And Vomiting Pramipexole Dihydrochloride 0.125 mg 05/26/19 21:00 05/26/19 21:44 Mirapex PO 0.125 mg HS ANDREAS Administration Spironolactone 25 mg 05/27/19 09:00 Aldactone PO DAILY ANDRE[facility] Intake and Output 05/26/19 05/27/19 05/27/19 22:59 06:59 14:59 Intake Total 20 10 Balance 20 10 Intake: Amount of Fluid Infused ( 20 ml) Intake, IV Titration 10 Amount Heparin Sod,Pork in 0.45% 10 NaCl 25,000 unit In 0.45 % NaCl 1 250ml.bag @ 10. 97 UNITS/KG/HR 10.002 mls /hr IV .Q24H [facility] Rx#: [id number] Other: # Voids 2 Weight 91.172 kg 05/27/19 01:51 05/26/19 17:05
--- NOTE | 2019-05-27 12:30 | ECHOF ---
Referral Reason:cp MEASUREMENTS -------- HEIGHT: 165.1 cm WEIGHT: 91.2 kg BP: 137/75 RVIDd: 3.3 cm (< 3.3) IVSd: 1.4 cm (0.6 - 1.1) LVIDd: 4.4 cm (3.9 - 5.3) LVPWd: 1.4 cm (0.6 - 1.1) IVSs: 2.0 cm LVIDs: 3.1 cm LVPWs: 1.8 cm LA Diam: 2.7 cm (2.7 - 3.8) LAESV Index (A-L): 28.38 ml/m Ao Diam: 3.3 cm (2.0 - 3.7) AV Cusp: 1.9 cm (1.5 - 2.6) MV EXCURSION: 21.020 mm (> 18.000) MV EF SLOPE: 105 mm/s (70 - 150) EPSS: 0.4 cm MV E Watson: 0.84 m/s MV DecT: 213 ms MV A Watson: 0.90 m/s MV E/A Ratio: 0.93 RAP: 5.00 mmHg RVSP: 22.76 mmHg FINDINGS -------- Sinus rhythm. This was a technically adequate study. The left ventricular size is normal. There is moderate concentric left ventricular hypertrophy. O verall left ventricular systolic function is normal with, an EF between 55 - 60 %. The right ventricle is normal in size. Normal LA size by volume 22+/-6 ml/m2. The right atrial size is normal. Interatrial and interventricular septum intact. The aortic valve was not well visualized. The mitral valve leaflets are mildly thickened. There is trace to mild mitral regurgitation. Mild tricuspid regurgitation present. Right ventricular systolic pressure is normal at < 35 mmHg. The pulmonic valve was not well visualized. The aortic root size is normal. Normal inferior vena cava with normal inspiratory collapse consistent with estimated right atrial pre ssure of 5 mmHg. The inferior vena cava is mildly dilated. There is no pericardial effusion. CONCLUSIONS -------- 1. Sinus rhythm. 2. This was a technically adequate study. 3. The left ventricular size is normal. 4. There is moderate concentric left ventricular hypertrophy. 5. Overall left ventricular systolic function is normal with, an EF between 55 - 60 %. 6. Normal LA size by volume 22+/-6 ml/m2. 7. The aortic valve was not well visualized. 8. There is trace to mild mitral regurgitation. 9. Mild tricuspid regurgitation present. 10. Right ventricular systolic pressure is normal at < 35 mmHg. 11. The pulmonic valve was not well visualized. 12. The aortic root size is normal. 13. Normal inferior vena cava with normal inspiratory collapse consistent with estimated right atrial pressure of 5 mmHg. 14. The inferior vena cava is mildly dilated. 15. There is no pericardial effusion. ELECTRICITY TRADER: Joan Caro RDCS
[2019-05-27] MEDS ORDERED: IV FLUID CONTINUATION 750 ML IV ONE (12:53)
[2019-05-27] MEDS ORDERED: fentaNYL (PF) 50 MCG/ML 2 ML AMP IV ONE (13:21)
[2019-05-27] MEDS ORDERED: LIDOCAINE 1% INJ 10MG/ML (20 ML MDV) SQ ONE (13:26)
[2019-05-27] MEDS ORDERED: VERAPAMIL SYRINGE (5 MG/10 ML) INTRAARTER ONE ×2 (13:30→13:31)
[2019-05-27] MEDS ORDERED: CLOPIDOGREL 75 MG TAB PO ONE (13:49)
[2019-05-27] MEDS ORDERED: IOPAMIDOL-370 100ML BTL INJ ONE (13:51)
[2019-05-27] MEDS ORDERED: RX INFO: IV CONTRAST WAS GIVEN 1 EACH MISC MISCELLANE PRN (14:02)
[2019-05-27] MEDS ORDERED: SODIUM CHLORIDE 0.9% 1,000 ML IV SCH (14:15)
[2019-05-27] MEDS ORDERED: cloNIDine HCL 0.1 MG TAB PO PRN (15:12)
[2019-05-27] MEDS ORDERED: LORazepam 0.5 MG TAB PO PRN (15:12)
[2019-05-27] MEDS ORDERED: hydrALAZINE HCL 20 MG/ML 1 ML VIAL IVP PRN (15:12)
[2019-05-27] MEDS ORDERED: TEMAZEPAM 15 MG CAP PO PRN (15:13)
--- NOTE | 2019-05-27 18:22 | HP ---
HISTORY AND PHYSICAL DATE OF SERVICE: 05/27/2019 CHIEF COMPLAINT: Chest pain. HISTORY OF PRESENT ILLNESS: This 63-year-old woman with a past medical history of multiple medical problems including CAD, history of dementia, GERD, hypertension, hyperlipidemia, DJD, history of valve prolapse, being followed by primary physician in the [facility] was visiting family and the patient developed chest pain which is felt in the anterior part of chest, which the patient rated as moderate to severe and radiating to the jaws and associated with nausea and diaphoresis. The patient had no weakness. Patient came to [facility]. Creatinine was elevated up to 0.26, indicating acute non-ST elevation myocardial infarction. Patient underwent cardiac catheterization. Final report is pending at this time. There is no history of fever, rigors or chills. No headache, loss of consciousness or seizures. Blood pressure is also elevated at this time. PAST MEDICAL HISTORY: History of CAD, history of chest pain, dementia, GERD, hypertension, hyperlipidemia, history of DJD, history of valve prolapse, history of CAD/stent. MEDICATIONS: Prior to admission include home medications are: 1. Aldactone 25 mg p.o. daily. 2. Mirapex 0.125 mg p.o. q.h.s. 3. Nitrostat 0.4 mg p.r.n. 4. Zetia 10 mg q.h.s. 5. Repatha 140 mg subcu 14 days. 6. Celebrex 200 mg p.o. daily. 7. Coreg 12.5 mg p.o. b.i.d. 8. Ecotrin 81 mg q.h.s. ALLERGIES: BENADRYL AND DILAUDID. FAMILY HISTORY: History of myocardial infarction in the family. SOCIAL HISTORY: Previous history of smoking. Occasional alcohol intake. REVIEW OF SYSTEMS: ENT: No diminished vision. No diminished hearing. CARDIOVASCULAR system: As mentioned earlier. RESPIRATORY: As mentioned earlier. GI no nausea or vomiting. no dysuria or hematuria. NERVOUS SYSTEM: No numbness or weakness. ALLERGY/IMMUNOLOGY: No asthma or hayfever. MUSCULOSKELETAL: As mentioned earlier. HEMATOLOGY/ONCOLOGY: No history of anemia. ENDOCRINE: No history of diabetes or hypothyroidism. CONSTITUTIONAL: As mentioned earlier. DERMATOLOGY: Negative. RHEUMATOLOGY negative. PSYCHIATRY as mentioned earlier. PHYSICAL EXAMINATION: Alert and oriented times three. Pulse 48, blood pressure 97/87, respirations 16, temp is normal. Pulse ox 94% on room air. HEENT: Conjunctivae normal. Oral mucosa moist. NECK is no jugular venous distention. No carotid bruit. No lymph node enlargement. CARDIOVASCULAR: S1, S2 muffled. No S3, no S4. RESPIRATORY: Breath sounds diminished in the bases. No rhonchi. No crackles. ABDOMEN: Soft, nontender. No mass palpable. LEGS: No edema. No swelling. NERVOUS SYSTEM: Higher functions as mentioned earlier. Moves all 4 limbs. No focal motor or sensory deficits. LYMPHATICS: No lymph nodes palpable in the neck, axillae or groin. SKIN: No ulcer, rashes or bleeding. JOINTS: No active deforming arthropathy. LABS: WBC 8.6, hemoglobin 13.4, and creatinine noted. Otherwise troponin 0.264. ASSESSMENT: 1. Chest pain, possible acute non ST-segment elevation myocardial infarction status post cardiac catheterization and clear coronaries. 2. Troponin elevated up to 0.264. 3. Accelerated hypertension and hypertensive urgency. 4. History of coronary artery disease/ stent. 5. History of dementia. 6. Gastroesophageal reflux disease. 7. Hypertension. 8. Hyperlipidemia. 9. History of degenerative joint disease. 10.History of bowel prolapse. 11.History of chronic hypoxic respiratory failure. 12.Remote history of nicotine dependence. 13.Obesity with body mass index of 33.4. RECOMMENDATIONS AND DISCUSSION: This 63-year-old woman who presented with multiple medical issues, we will monitor the patient closely. Continue the current medications. Continue with aspirin. Continue with Lipitor. Recommend p.r.n. hydralazine and clonidine. Resume the home medications. Repeat labs. Closely follow with Cardiology. Unstable angina protocol. Guarded prognosis because of multiple complex medical issues. Further recommendations to follow. Discussed with the patient. MMODL / IJN: [id number] /
[2019-05-27] MEDS: amLODIPine 5 MG TAB PO SCH (21:14)
--- NOTE | 2019-05-27 21:49 | CC ---
CARDIAC CATHETERIZATION REPORT Mrs. Calabrese is a 63-year-old female with known history of coronary artery disease, status post stenting of the LAD and restenoses with repeat stenting in the past who presented with symptoms of chest discomfort and mild troponin elevation. In view of that, recommendation was made regarding cardiac catheterization. The procedure as well as risks and complications were discussed with the patient who is in full understanding and agreement. PROCEDURE: Patient was brought to the electrical laboratory technician in a fasting state after receiving fentanyl and Benadryl and achieving moderate conscious sedated state. Using Xylocaine anesthesia and Seldinger technique, a 6-Georgian sheath was introduced in the right radial artery. Selective right and left coronary angiography performed using 5-Georgian 3 and half bend left Ceasar and 4 bend right Ceasar catheter. Multiple views of the coronary arteries including hemiaxial views were obtained. Following that 5-Georgian tight pigtail catheter was introduced in the left ventricle and pressures were calculated. Following that, catheter and sheath were removed. Hemostasis was obtained with deployment of a TR band. There was no immediate complication. The patient is returned to her room in stable condition. Of note, the patient received 5000 units of intravenous heparin as well as intraarterial verapamil. FINDINGS: Left main: This is a short size vessel, bifurcating into left circumflex, left anterior descending artery, left main coronary artery has no evidence of high-grade stenosis. Left anterior descending artery: This is a large-sized vessel reaching to the apex giving rise to 2 diagonal branches. The proximal and mid stented segment of the LAD is patent. There is mild intimal restenosis of 20%. There is a 20% plaque prior to the stented segment at the proximal edge of the stented segment without any evidence of high-grade stenosis. There was significant disease involving the first septal perforators at the ostium. Left circumflex: This is a nondominant vessel giving rise to 3 obtuse marginal branches. The left circumflex proximally has 10-20% plaque. There is mild intimal disease involving the obtuse marginal branch to. Right coronary artery: This is a large dominant vessel bifurcating distally to PDA and posterolateral segment branches. The right coronary artery in the proximal segment has 10% to 20% plaque and there is another plaque in the mid distal segment. The rest of the vessel has no high-grade stenosis. Left ventriculogram: Left ventriculogram was not performed. HEMODYNAMICS: There was no gradient across the aortic valve. The left ventricle end-diastolic pressure was 16-20 mmHg. CONCLUSION: 1. Mild triple-vessel coronary disease with no evidence of restenosis in the stented left anterior descending coronary artery. 2. Mildly elevated left ventricular end-diastolic pressure. RECOMMENDATION: It is possible that her symptoms were related to either ruptured plaque or vasospastic disease. I will adjust her medical regimen and depending on her progress, further recommendation will be made. Those findings were discussed with the patient and she was in full understanding and agreement. MMLYUBOV / ARINAN: [id number] /
[2019-05-27] MEDS: EZETIMIBE 10 MG TAB PO SCH (22:39)
[2019-05-27] MEDS: PRAMIPEXOLE 0.125 MG TAB PO SCH (22:39)
[2019-05-27 23:56] VITALS: RESP 16
[2019-05-28 00:42] LABS: Appearance,Urine Clear (Clear); Bilirubin,Urine Negative (Negative); Blood,Urine Negative (Negative); Color,Urine Yellow; Glucose,Urine (UA) Negative (Negative); Ketones,Urine Negative (Negative); Leukocyte Esterase,Urine Small (Negative); Mucus,Urine Rare /hpf; Nitrite,Urine Negative (Negative); Protein,Urine Negative (Negative); RBC,Urine <1 /hpf (0-5); Specific Gravity,Urine 1.026 (1.001-1.035); Squamous Epithelial Cell,Urine 1 /hpf (0-4); WBC,Urine 3 /hpf (0-5)
[2019-05-28] MEDS: CARVEDILOL 12.5 MG TAB PO SCH (06:46)
[2019-05-28 06:47] LABS: Basophils # (A) 0.1 k/uL (0-0.2); Basophils % (A) 1 %; Eosinophils # (A) 0.2 k/uL (0-0.7); Eosinophils % (A) 3 %; HCT 42.1 % (34.0-46.0); Lymphocytes # (A) 1.5 k/uL (1.0-4.8); Lymphocytes % (A) 23 %; MCH 28.8 pg (25.0-35.0); MCHC 33.2 g/dL (31.0-37.0); MCV 86.6 fL (80.0-100.0); Mean Platelet Volume 7.2; Monocytes # (A) 0.3 k/uL (0-1.0); Monocytes % (A) 5 %; Neutrophils # (A) 4.4 k/uL (1.3-7.7); Neutrophils % (A) 67 %; Platelet Count 198 k/uL (150-450); RBC 4.87 m/uL (3.80-5.40); RDW 14.6 % (11.5-15.5); WBC 6.6 k/uL (3.8-10.6)
[2019-05-28 07:00] LABS: Calcium 9.4 mg/dL (8.4-10.2); Potassium 4.1 mmol/L (3.5-5.1)
[2019-05-28] MEDS ORDERED: PANTOPRAZOLE 40 MG TABLET PO SCH (07:30)
[2019-05-28 07:40] VITALS: TEMP 98.1
[2019-05-28] MEDS: amLODIPine 5 MG TAB PO SCH (08:21)
[2019-05-28] MEDS: SPIRONOLACTONE 25 MG TAB PO SCH (08:25)
[2019-05-28] MEDS ORDERED: CLOPIDOGREL 75 MG TAB PO SCH (09:00)
[2019-05-28] MEDS ORDERED: LISINOPRIL 5 MG TAB PO SCH (11:15)
--- NOTE | 2019-05-28 11:33 | PN ---
PROGRESS NOTE Mrs. Calabrese is a 63-year-old female with a history of coronary artery disease who presented yesterday with symptoms of chest pain and mild troponin elevation. She is feeling well this morning. She is denying any symptoms of chest pain. No dizziness. No palpitation. She denies any nausea. No cough. She underwent cardiac catheterization that revealed patent stent with mild triple-vessel coronary artery disease. Her presentation could be related to ruptured plaque. She has continued to be on aspirin 81 mg daily, Plavix 75 mg daily, Coreg 12.5 mg twice a day, Zetia 10 mg daily, spironolactone 25 mg daily. PHYSICAL EXAMINATION: Blood pressure 128/60 with a heart rate in the 60s. LUNGS: Clear. HEART: Regular rate and rhythm S1, S2. No S3. No rub. ABDOMEN: Soft, nontender. Right radial pulse intact. EXTREMITIES: No edema. LAB DATA: Lab data revealed BUN and creatinine 16 and 0.85, potassium 4.1. Hemoglobin of 14. IMPRESSION: 1. Probable non ST-segment elevation myocardial infarction could be related to a plaque rupture, stable. No evidence of high-grade stenosis at this time. 2. Status post stenting of the LAD. 3. History of hypertension. 4. Hyperlipidemia. RECOMMENDATIONS: From the cardiac standpoint, we will continue present therapy. Patient should be able to be discharged home today and follow with her teacher of the visually impaired in her area. She has an appointment to see him in 2 weeks. I will continue the Plavix at this time because of the possibility of a plaque rupture. I discussed with her those findings. The patient could not tolerate isosorbide mononitrate in the past because of severe headache. MMODL / IJN: [id number] /
[2019-05-28 11:39] VITALS: BP 150/82; PULSE 68
[2019-05-28] MEDS ORDERED: ASPIRIN 81 MG PO SCH (21:00)
--- NOTE | 2019-05-29 02:18 | DS ---
DISCHARGE SUMMARY DATE OF SERVICE: 05/28/2019. FINAL DIAGNOSES: 1. Chest pain possible acute non ST-segment elevation myocardial infarction status post cardiac catheterization showing minimal coronary artery disease and triple- vessel disease. 2. Troponin elevated up to 0.264. 3. Accelerated hypertension, hypertensive urgency. 4. History of coronary artery disease/stent. 5. History of dementia. 6. Gastroesophageal reflux disease. 7. Hypertension. 8. Hyperlipidemia. 9. History of degenerative joint disease. 10.History of valve prolapse. 11.History of chronic hypoxic respiratory failure. 12.Remote history of nicotine dependence. 13.Obesity with body mass index of 33.4. DISCHARGE DISPOSITION: The patient will be discharged in stable condition with guarded prognosis. Discharge cleared Cardiology. HISTORY OF PRESENT ILLNESS: This 63 -year-old woman with a past medical history of multiple medical problems was admitted with chest pain. Troponins elevated. Patient underwent cardiac cath showed minimal coronary artery disease. The possibility of plaque rupture was considered and also vasospasm was considered and the patient was treated medically and patient improved significantly. On exam, vitals are stable. Cardiovascular system: S1, S2. Abdomen soft. Nervous system: No focal deficits. DISCHARGE ADVICE AND MEDICATIONS: 1. Diet is cardiac diet. 2. Activity limited until followup. 3. Follow up with primary physician in 2-3 days. Otherwise, follow with Cardiology as recommended. DISCHARGE MEDICATIONS: 1. Aldactone 25 mg p.o. daily. 2. Celebrex 200 mg p.o. daily. 3. Coreg 12.5 mg p.o. b.i.d. 4. Ecotrin 81 mg daily. 5. Mirapex 0.125 mg q.h.s. 6. Nitrostat 0.4 sublingual p.r.n. 7. Repatha 140 mg subcu Q 14 days. 8. Zetia 10 mg q.h.s. 9. Plavix 75 mg p.o. daily. 10.Zestril 5 mg p.o. daily. Once again the patient being discharged in stable condition with guarded prognosis. MMODL / IJN: [id number] /
== END 2019-05-28 12:20 | disposition home or self-care (01) | DRG 281 ==
LOC: EC 16:34 → 1SOBS 18:49 → OBSVTOIN 05-27 07:23 → 3SCARD 05-27 13:54
PROVIDERS: ADMIT Hospitalist; ATTEND Hospitalist
PROC: B2111ZZ Fluoroscopy of Multiple Coronary Arteries using Low Osmolar Contrast (ICD-10-PCS; 2019-05-27)
PROC: 4A023N7 Measurement of Cardiac Sampling and Pressure, Left Heart, Percutaneous Approach (ICD-10-PCS; principal; 2019-05-27 13:00)
DX: I21.4 Non-ST elevation (NSTEMI) myocardial infarction (principal); J96.11 Chronic respiratory failure with hypoxia; E66.9 Obesity, unspecified; E78.5 Hyperlipidemia, unspecified; F03.90 Unspecified dementia, unspecified severity, without behavioral disturbance, psychotic disturbance, mood disturbance, and anxiety; I10 Essential (primary) hypertension; I16.0 Hypertensive urgency; I25.10 Atherosclerotic heart disease of native coronary artery without angina pectoris; K21.9 Gastro-esophageal reflux disease without esophagitis; Z68.33 Body mass index [BMI] 33.0-33.9, adult; Z79.02 Long term (current) use of antithrombotics/antiplatelets; Z79.1 Long term (current) use of non-steroidal anti-inflammatories (NSAID); Z79.82 Long term (current) use of aspirin; Z79.899 Other long term (current) drug therapy; Z80.6 Family history of leukemia; Z82.49 Family history of ischemic heart disease and other diseases of the circulatory system; Z87.891 Personal history of nicotine dependence; Z95.5 Presence of coronary angioplasty implant and graft; Z99.81 Dependence on supplemental oxygen; Z82.61 Family history of arthritis; Z88.5 Allergy status to narcotic agent; Z88.8 Allergy status to other drugs, medicaments and biological substances
CPT/HCPCS: 36415; 71046; 80048; 80053; 80061; 81001; 83735; 83880; 84484; 85025; 85610; 85730; 93005; 93306; 93458; 96374; 99285